=== PATIENT | female | born 2005 | race Caucasian/White ===

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

== ENCOUNTER 2024-12-03 18:26 | Emergency (ER) | payer OTHER, SELFPAY ==
[2024-12-03 18:29] VITALS: BP 129/82; PULSE 73; RESP 16; TEMP 36.6; O2SAT 100
--- OUTSIDE RECORDS SUMMARY | 2024-12-03 18:29 | XMS_ITS | Clinical Summary ---
Author Organization [facility] Address [address] [place] [address] Care Team Providers Care Mailhouse Operator Name Role Phone Provider, None Primary Care Provider Unavailabl e Allergies Active Allergy Reactions Criticality Noted Date Comments Azithromycin Diarrhea 07/03/2008 Other Other (see Comments) BANANAS Medications BENADRYL PO take by mouth As needed DIRECTED Active albuterol (2.5 MG/3ML) 0.083% IN NEBU 2.5 mg by Nebulization route Once. Active Cholecalciferol (VITAMIN D) 400 UNIT PO CAPS Take 1 Tab by mouth daily. Active ofloxacin (OCUFLOX) 0.3 % OP SOLN Place 1 Drop in affected eye(s) 4 times daily. 1 Bottle 0 0 Active Active Problems Problem Noted Date Diagnosed Date Buckle fracture of distal ends of radius and uln a 11/26/2009 Overview (11/26/2009): 10/2009 Nevus 12/11/2008 Otitis media 04/12/2008 Cough 04/12/2008 Immunizations Immunization Administration Dates Next Due DTAP VACCINE 03/01/2006, 6,04/10/2005, 5 HIB Vaccine (PRP-T) 12/16/2005, 6,04/10/2005, 5 Hepatitis A Vaccine 12/09/2007,03/01/2006 Hepatitis B Vaccine 04/10/2005,01/28/2005,2004 Inactivated Polio Vaccine 06/19/2005,04/10/2005, 01/28/2005 Influenza Vaccine less than 3 yrs 03/11/2007,12/2005,03/01/2006 MMR Vaccine 12/16/2005 PUR DTAP UNDER 7 YRS IM 2009 PUR FLU W/PRES AGE 3+ FULL IM 02/06/2009, 008 PUR MMR AND VARICELLA SQ INJ 2009 PUR POLIO IPV INACTIVATED SQ/IM 2009 Pneumococcal Vaccine Peds 12/16/2005,,04/10/2005, 5 Varicella Vaccine Live 12/16/2005 Family History Medical History Relation Name Comments Allergies Father Asthma Father Allergies Mother Asthma Mother Heart Disease Paternal Grandfather High Cholesterol Paternal Grandfather Hypertension Paternal Grandfather Heart Disease Paternal Grandmother High Cholesterol Paternal Grandmother Hypertension Paternal Grandmother Relation Name Status Comments Father Mother Paternal Grandfather Paternal Grandmother Social History Tobacco Use Types Packs/Day Years Used Date Smoking Tobacco: Never Assessed Comments Unknown Sex and Gender Information Value Date Recorded Sex Assigned at Not on file 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 Gender Identity Not on file Sexual Orientation Not on file Last Filed Vital Signs Vital Sign Reading Time Taken Comments Blood Pressure 136/94 08/15/2023 1:38 PM CDT Pulse 86 08/15/2023 1:38 PM CDT Temperature 36.6 C (97.8 F) 08/15/2023 1:38 PM CDT Respiratory Rate 18 08/15/2023 1:38 PM CDT Oxygen Saturation 98% 08/15/2023 1:38 PM CDT Inhaled Oxygen Concentration - - Weight 77.1 kg (170 lb) 08/15/2023 1:38 PM CDT Height 167.6 cm (5' 6) 08/15/2023 1:38 PM CDT Head Circumference 49.5 cm 12/08/2006 7:44 AM CDT Head Circumference Percentile 95.25% 12/08/2006 7:44 AM CDT Growth Chart: WHO (Girls, 0- 2 years) Body Mass Index 27.44 08/15/2023 1:38 PM CDT Body Mass Index Percentile 89.67% 08/15/2023 1:3 8 PM CDT Growth Chart: [facility] [place] (Girls, 2- 20 Years) Plan of Treatment Health Maintenance Due Date Last Done Comments Hepatitis C Virus (HCV) Screening 2004 Meningococcal B Immunization (1 of 2 - Standard) 2020 SARS-COV-2 Immunization ( season) 2024 02/19/2023, 01/31/2022, 05/20/2021, Additional history exists Influenza Immunization (#1) 01/22/202501/23, 01/31/2022, 02/11/2021, Additional history exists DTaP/Tdap/Td Immunization (7 - Td or Tdap) 12/16/2025 12/17/2015, 2009, 03/01/2006, Additional history exists Respiratory Syncytial Virus (RSV) Immunization (Adult) (1 - 1-dose 75+ series) 12/11/2079 Pneumococcal Immunization Combined Aged Out 12/16/2005, 12/16/2005, 07/06/2005, Additional history exists No longer eligible based on patient's age to complete this topic Hepatitis A Immunization Discontinued 12/09/2007, 01/2006 Measles Mumps Rubella (MMR) Immunization Discontinued 2009, 2009, 12/16/2005 Polio (IPV) Immunization Discontinued 010, 06/19/2005, 04/10/2005, Additional history exists Varicella Immunization Discontinued 0, 2009, 12/16/2005 Hepatitis B Immunization Completed 016, 04/10/2005, 01/28/2005, Additional history exists Human Papillomavirus (HPV) Immunization Completed 08/24/2016, 04/20/2016, 02/12/2016 Meningococcal Immunization (ACWY) Completed 09/03/2021, 08/12/2015 Rotavirus Immunization Aged Out No lo nger eligible based on patient's age to complete this topic [place] [address] [place] [place] [address] [employer] Care Teams Mailhouse Operator Relationship Specialty Start Date End Date Provider, None [place] PCP - General 12/20/14
[2024-12-03 22:04] VITALS: O2SAT 99
[2024-12-03 22:15] VITALS: O2SAT 99
[2024-12-03 22:16] VITALS: BP 130/72; O2SAT 99
--- OUTSIDE RECORDS SUMMARY | 2024-12-03 22:29 | XMS_ITS | Clinical Summary ---
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
[2024-12-03 22:30] VITALS: O2SAT 100
[2024-12-03 22:31] VITALS: BP 122/77; O2SAT 100
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
== END 2024-12-03 22:46 | disposition home or self-care (01) ==
PROVIDERS: Emergency Provider Emergency Medicine; PCP Family Medicine
DX: Z04.1 Encounter for examination and observation following transport accident (principal); E03.9 Hypothyroidism, unspecified; F41.9 Anxiety disorder, unspecified; F32.A Depression, unspecified; Z79.899 Other long term (current) drug therapy; Z85.6 Personal history of leukemia; V47.5XXA Car driver injured in collision with fixed or stationary object in traffic accident, initial encounter
CPT/HCPCS: 99283